=== PATIENT | female | born 1950 | race Caucasian/White ===

== ENCOUNTER 2017-02-09 11:07 | Day surgery (SDC) | payer BC, MEDICARE ==
[2017-02-04 11:01] VITALS: BMI 37.6
[~2017-02-09 11:07] MED LIST: LACTATED RINGERS 1,000 ML IV SCH
[2017-02-09 11:40] VITALS: TEMP 98
[2017-02-09] MEDS ORDERED: LIDOCAINE 1% 20 ML VIAL (10MG/ML) FOR IV START INTRADERMA ONE (11:50)
[2017-02-09] MEDS ORDERED: LIDOCAINE 1% INJ 10MG/ML (20 ML MDV) ONE (12:09)
[2017-02-09] MEDS ORDERED: PROPOFOL 10 MG/ML 20 ML VIAL IV ONE (12:09)
--- NOTE | 2017-02-09 12:37 | P.PCN ---
Date of Procedure: 02/09/17 Procedure(s) Performed: Procedure: Esophagogastroduodenoscopy and esophageal dilation up to 15 mm Preoperative diagnosis: Dysphagia. Postoperative diagnosis: Sliding hiatal hernia with nonobstructing stricture at the level of the GE junction dilated up to 15 mm using the Microvasive through- the-scope balloon dilator. Preparation and sedation: Was provided by anesthesia. Brief clinical history: The patient is a 67-year-old female with chronic dysphagia. She was last dilated in September 2013 using the 15-18 mm balloon Microvasive esophageal balloon dilator. She apparently has been having ongoing issues despite that. At this time, she has multiple episodes a week usually once a day where she feels the food or the fluid is lodged in the distal esophagus. She has been on acid suppressive medications and has rare heartburn. No alarm symptoms such as weight loss or bleeding. No history of anemia. Procedure: With the patient on her left lateral decubitus position and after informed consent and adequate sedation, I passed the Olympus-GIF 160 video upper endoscope through the cricopharyngeus down the esophagus. There was a distal stricture at the level of the GE junction which was around 36 cm from the incisors and there was a small sliding hiatal hernia. The esophagus had the previously described appearance of intermittent concentric rings along its length. There was no hindrance to the advancement of the endoscope, although, at the level of the GE junction, gentle pressure appears to have resulted in some degree of dilation. The esophagus did not show any erosions or ulcers or Kline's esophagus. The stomach and duodenum were then inspected and no obvious abnormalities were noted including the retroflex view in the cardia. At this point, I passed the Microvasive [id number] balloon dilator size 15-18 mm centered that at the level of the stricture and inflated it to 15 mm. The procedure had to be terminated at this point as the patient was having respiratory issues which reversed nicely afterwards. Plan: The patient was reassured. Would keep on clear liquids today and she can advance her diet as tolerated tomorrow. I will see her in follow-up in the office in 2-4 weeks and further sessions of dilation and additional biopsies from the esophagus to rule out eosinophilic esophagitis would be considered. I would keep you updated on her progress.
[2017-02-09 12:46] VITALS: RESP 16
[2017-02-09 12:58] VITALS: BP 131/67; PULSE 51
== END 2017-02-09 13:13 | disposition home or self-care (01) ==
LOC: ORWHC2ENDO 11:07
DX: K22.2 Esophageal obstruction (principal); K44.9 Diaphragmatic hernia without obstruction or gangrene; I10 Essential (primary) hypertension; K21.9 Gastro-esophageal reflux disease without esophagitis; E78.5 Hyperlipidemia, unspecified; E07.9 Disorder of thyroid, unspecified; Z79.899 Other long term (current) drug therapy; Z79.82 Long term (current) use of aspirin; Z91.09 Other allergy status, other than to drugs and biological substances
CPT/HCPCS: 43249; J2001; J2704; C1726; 44799

== ENCOUNTER → 2017-03-26 | Outpatient (CLI) | payer BC ==
--- NOTE | 2017-03-26 11:41 | FL ---
EXAMINATION TYPE: FL barium swallow DATE OF EXAM: 03/26/2017 CLINICAL HISTORY: Dysphagia. Sternal pressure after eating per patient. History of esophageal dilatat ion 3 times most recent 6 weeks ago. TECHNIQUE: A double contrast esophagram is performed utilizing air and barium. A total of 60 second s of fluoroscopic time was utilized during procedure. COMPARISON: None FINDINGS: The esophagus shows some dysmotility with abnormal secondary and tertiary contractions iden tified. There is small sliding-type hiatal hernia. No suspicious intraluminal mass or stricture is se en. No significant gastroesophageal reflux was seen during real time performance of this study. IMPRESSION: Some esophageal dysmotility without concerning focal stricture or intraluminal mass.
== END | disposition home or self-care (01) ==
LOC: RADFLWHC 10:14
DX: K22.4 Dyskinesia of esophagus (principal); R13.19 Other dysphagia
CPT/HCPCS: 74220

== ENCOUNTER → 2017-06-05 | Outpatient (CLI) | payer BC ==
--- NOTE | 2017-06-08 09:51 | MM ---
Reason for exam: screening (asymptomatic). Last mammogram was performed 1 year and 1 month ago. History: Benign excisional biopsy of the left breast, 2016. Benign excisional biopsy of the left breast, 2001. Physical Findings: A clinical breast exam by your physician is recommended on an annual basis and results should be correlated with mammographic findings. MG Screening Mammo w CAD Bilateral CC and MLO view(s) were taken. Prior study comparison: May 01, 2016, mammogram, performed at [facility]. January 23, 2015, mammogram, performed at [facility]. There are scattered fibroglandular densities. No significant changes when compared with prior studies. ASSESSMENT: Benign, BI-RAD 2 RECOMMENDATION: Routine screening mammogram of both breasts in 1 year.
== END | disposition home or self-care (01) ==
LOC: RADMAMWWP 13:17
PROVIDERS: ATTEND Family Medicine
DX: Z12.31 Encounter for screening mammogram for malignant neoplasm of breast (principal)